=== PATIENT | female | born 1990 | race African-American/Black ===

== ENCOUNTER 2021-05-07 01:06 | Emergency (ER) | payer BC, OTHER ==
[2021-05-07] MEDS ORDERED: Ibuprofen 800 MG TAB ONE (02:24)
== END 2021-05-07 03:27 | disposition home or self-care (01) ==
LOC: NAV ERS 01:06
DX: S13.9XXA Sprain of joints and ligaments of unspecified parts of neck, initial encounter (principal); S29.012A Strain of muscle and tendon of back wall of thorax, initial encounter; S39.012A Strain of muscle, fascia and tendon of lower back, initial encounter; S20.219A Contusion of unspecified front wall of thorax, initial encounter; S90.112A Contusion of left great toe without damage to nail, initial encounter; S50.811A Abrasion of right forearm, initial encounter; V89.2XXA Person injured in unspecified motor-vehicle accident, traffic, initial encounter
CPT/HCPCS: 70450; 72125; 72128; 72131; G0390